=== PATIENT | female | born 1955 | race Caucasian/White ===

== ENCOUNTER → 2017-04-24 | Outpatient (CLI) | payer BC | LOC: BRMIMAGING 07:42 | PROVIDERS: ATTEND Family Medicine | DX: Z12.31 Encounter for screening mammogram for malignant neoplasm of breast (principal); Z85.3 Personal history of malignant neoplasm of breast | CPT/HCPCS: G0202 ==

== ENCOUNTER → 2018-01-17 | Outpatient (CLI) | payer BC | LOC: BRMIMAGING 09:10 | PROVIDERS: ATTEND Family Medicine | DX: N61.0 Mastitis without abscess (principal); Z80.3 Family history of malignant neoplasm of breast | CPT/HCPCS: 76641-PO ==

== ENCOUNTER → 2019-02-14 | Outpatient (CLI) | payer BC | LOC: BRMIMAGING 07:38 ==